=== PATIENT | male | born 1980 | race Caucasian/White ===

== ENCOUNTER 2023-08-28 17:14 | Emergency (ER) | payer OTHER ==
[~2023-08-28] VITALS: Ht 175.3 cm; Wt 63.5 kg
[2023-08-28] MEDS ORDERED: KETO10TA2 PO (18:53)
== END 2023-08-28 19:03 | disposition home or self-care (01) ==
LOC: ER 17:15
DX: S43.084A Other dislocation of right shoulder joint, initial encounter (principal); X58.XXXA Exposure to other specified factors, initial encounter; Y93.89 Activity, other specified; Y92.832 Beach as the place of occurrence of the external cause